=== PATIENT | female | born 1955 | race Caucasian/White ===

== ENCOUNTER 2017-03-19 11:52 | Emergency (ER) | payer OTHER ==
[~2017-03-19] VITALS: Ht 149.9 cm; Wt 68.0 kg
[~2017-03-19 11:52] MED LIST: CARV3.125 PO; DEXI30CA2 PO; ELDE1SYP PO; FIORIC PO; HAWT1CAP PO; LECIGRA PO; NITR.4 SL; PRIN5TAB PO; ST J81CH PO
[2017-03-19 11:59] VITALS: BP 152/72; PULSE 52; RESP 18; TEMP 99; O2SAT 97
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
[2017-03-19 12:09] VITALS: BP 187/88; PULSE 57; RESP 14; O2SAT 99
[2017-03-19] MEDS ORDERED: ASPI81CH CHEW (12:14)
[2017-03-19] MEDS ORDERED: DEXI30CA PO (12:14)
[2017-03-19] MEDS ORDERED: CARV3.12 PO (12:14)
[2017-03-19] MEDS ORDERED: LISI-519 PO (12:14)
[2017-03-19 12:28] VITALS: BP 158/74; PULSE 56
[2017-03-19] MEDS ORDERED: SODIUM CHLORIDE 0.9% FLUSH 10 ML FLUSH IVF PRN (12:30)
--- NOTE | 2017-03-19 12:35 | PD ---
HPI Chief Complaint: Pain: Acute or Chronic Time Seen by Provider: 12:03 Travel History International Travel<30 days: No Contact w/Intl Traveler<30days: No Traveled to known affect area: No History of Present Illness HPI This is a 61-year-old female with a history of coronary artery disease, hypertension, hyperlipidemia, who presents today with complaints of mid thoracic spine pain. The patient reports pain in her mid back is worse with movement. She denies any shortness of breath or pleuritic discomfort. She denies any chest pain, chest pressure. She states she's been taking over-the- counter pain medicines with no relief. The patient states she's had back pain in the past. She states that it's usually self resolved however today it has not. There is no tearing back pain. There is no pain between the shoulder blades. There is no nausea or diaphoresis. PFSH Past Medical History Arthritis: No Asthma: No Blood Disorders: No Anxiety: No Depression: No Heart Rhythm Problems: No Cancer: Yes (ENDOMETRIAL) Cardiac Catheterization: Yes (2001 AND 2009) Cardiovascular Problems: Yes (5 STENTS) High Cholesterol: Yes Chemotherapy: No Chest Pain: Yes Congestive Heart Failure: No COPD: No Cerebrovascular Accident: No Coronary Artery Disease: Yes Diminished Hearing: Yes (LEFT SIDE) Endocrine: No Gastrointestinal Disorders: Yes (GERD) GERD: No Genitourinary: No Headaches: No Hepatitis: No Hiatal Hernia: No Hypertension: Yes Immune Disorder: No Implanted Vascular Access Dvce: Yes Musculoskeletal: Yes (CERVICAL PAIN, DISCS SLIGHTLY HERNIATED) Neurologic: No Psychiatric: No Reproductive: Yes (VAGINAL SPOTTING) Respiratory: No Migraines: Yes Myocardial Infarction: No Radiation Therapy: No Seizures: No Sleep Apnea: No Thyroid Disease: No Ulcer: No Tetanus Vaccination: Unknown Menopausal: Yes : 3 Para: 3 Tubal Ligation: Yes (1974) Past Surgical History Abdominal Surgery: Yes (CHOLECYSTECTOMY, STONES REMOVED FROM DUCT) AICD: No Body Medical Devices: CARDIAC STENTS Cardiac Surgery: Yes (5 CARDIAC STENTS) Cholecystectomy: Yes Coronary Artery Bypass Graft: No Ear Surgery: No Endocrine Surgery: No Eye Surgery: No Genitourinary Surgery: Yes (ABSCESS REMOVED LEFT KIDNEY) Gynecologic Surgery: Yes (TUBAL LIGATION, D&C/hysterectomy) Hysterectomy: Yes Joint Replacement: No Pacemaker: No Thoracic Surgery: No Other Surgery: Yes (TUBAL) Social History Alcohol Use: No Tobacco Use: No Substance Use: No Allergies-Medications (Allergen,Severity, Reaction): Coded Allergies: Codeine (Verified Allergy, Severe, SWELLING, 03/19/17) Gemfibrozil (Verified Allergy, Severe, ELEVATED LIVER ENZYMES, 03/19/17) HMG-CoA Reductase Inhibitors (Verified Adverse Reaction, Severe, MUSCLE PAIN, 03/19/17) Ibuprofen (Verified Adverse Reaction, Unknown, R/T LIVER ENZYMES, 03/19/17) INSTRUCTED BY CARROTING MACHINE OFFBEARER NOT TO TAKE R/T LIVER ENZYMES Tylenol (Verified Adverse Reaction, Unknown, R/T LIVER ENZYMES, 03/19/17) INSTRUCTED BY CARDIOLOGY NOT TO TAKE R/T LIVER ENZYMES Reported Meds & Prescriptions Reported Meds & Active Scripts Active Lortab (Hydrocodone-Acetaminophen) 5-325 Mg Tab 1 Tab PO Q6H PRN Medrol Dosepak (Methylprednisolone) 4 Mg Dspk 4 Mg PO DIRECTED Per Pharmacist direction Reported Aspirin 81 Mg Chew 81 Mg CHEW DAILY Dexilant (Dexlansoprazole) 30 Mg Cap 30 Mg PO DAILY Lisinopril 5 Mg Tab 5 Mg PO DAILY Carvedilol 3.125 Mg Tab 3.125 Mg PO BID Review of Systems Except as stated in HPI: all other systems reviewed are Neg General / Constitutional: No: Fever, Chills HENT: No: Headaches, Vertigo, Lightheadedness Cardiovascular: No: Chest Pain or Discomfort, Palpitations Respiratory: No: Cough, Shortness of Breath Gastrointestinal: No: Nausea, Vomiting, Abdominal Pain Genitourinary: No: Dysuria, Flank Pain Musculoskeletal: Positive: Pain (mid thoracic pain at roughly the T5 level), No: Weakness Neurologic: No: Weakness, Dizziness, Headache Physical Exam Narrative GENERAL: Well-developed well-nourished female in no acute respiratory distress. SKIN: Focused skin assessment warm/dry. HEAD: Atraumatic. Normocephalic. EYES:No scleral icterus. No injection or drainage. ENT: Mucous membranes pink and moist. NECK: Trachea midline. No JVD. CARDIOVASCULAR: Sinus bradycardia. No murmur appreciated. RESPIRATORY: No accessory muscle use. Clear to auscultation. Breath sounds equal bilaterally. GASTROINTESTINAL: Abdomen soft, non-tender, nondistended. MUSCULOSKELETAL: No obvious deformities. No clubbing. No cyanosis. No edema. BACK: No CVA tenderness. No rash. Subjective tenderness at the T5 thoracic spine level mid line. There is no redness or swelling. There is no pain elicited on palpation. NEUROLOGICAL: Awake and alert. No obvious cranial nerve deficits. Motor grossly within normal limits. Normal speech. PSYCHIATRIC: Appropriate mood and affect; insight and judgment normal. Data Data Last Documented VS Vital Signs Date Time Temp Pulse Resp B/P Pulse Ox O2 Delivery O2 Flow Rate FiO2 03/19/17 12:28 56 158/74 03/19/17 12:09 14 03/19/17 12:09 99 Nasal Cannula 2 03/19/17 11:59 99.0 Orders Chest, Single Ap (03/19/17 12:29) Spine, Thoracic-Ap/Lat/Sw(3vw) (03/19/17 12:29) Basic Metabolic Panel (Bmp) (03/19/17 12:29) Ckmb (Isoenzyme) Profile (03/19/17 12:29) Complete Blood Count With Diff (03/19/17 12:29) Magnesium (Mg) (03/19/17 12:29) Troponin I (03/19/17 12:29) Ecg Monitoring (03/19/17 12:29) Bilateral Bp Monitoring (03/19/17 12:29) Iv Access Insert/Monitor (03/19/17 12:29) Oximetry (03/19/17 12:29) Oxygen Administration (03/19/17 12:29) Sodium Chloride 0.9% Flush (Ns Flush) (03/19/17 12:30) Labs Laboratory Tests Test 03/19/17 12:20 White Blood Count 8.2 TH/MM3 Red Blood Count 5.45 MIL/MM3 Hemoglobin 15.5 GM/DL Hematocrit 45.0 % Mean Corpuscular Volume 82.5 FL Mean Corpuscular Hemoglobin 28.4 PG Mean Corpuscular Hemoglobin 34.4 % Concent Red Cell Distribution Width 13.2 % Platelet Count 210 TH/MM3 Mean Platelet Volume 9.6 FL Neutrophils (%) (Auto) 61.3 % Lymphocytes (%) (Auto) 29.9 % Monocytes (%) (Auto) 6.4 % Eosinophils (%) (Auto) 1.4 % Basophils (%) (Auto) 1.0 % Neutrophils # (Auto) 5.0 TH/MM3 Lymphocytes # (Auto) 2.4 TH/MM3 Monocytes # (Auto) 0.5 TH/MM3 Eosinophils # (Auto) 0.1 TH/MM3 Basophils # (Auto) 0.1 TH/MM3 CBC Comment DIFF FINAL Differential Comment Sodium Level 139 MEQ/L Potassium Level 4.3 MEQ/L Chloride Level 107 MEQ/L Carbon Dioxide Level 26.1 MEQ/L Anion Gap 6 MEQ/L Blood Urea Nitrogen 12 MG/DL Creatinine 0.73 MG/DL Estimat Glomerular Filtration 81 ML/MIN Rate Random Glucose 84 MG/DL Calcium Level 9.1 MG/DL Magnesium Level 2.2 MG/DL Total Creatine Kinase 79 U/L Troponin I LESS THAN 0.02 NG/ML MDM Medical Decision Making Medical Screen Exam Complete: Yes Emergency Medical Condition: Yes Differential Diagnosis Thoracic spine pain versus thoracic aortic aneurysm/dissection versus atypical chest pain. Narrative Course 61-year-old female presents with mid thoracic spine pain. Patient states worse with movement from side to side. There is no chest pain, chest pressure. The patient's EKG and cardiac enzymes show no acute process. Chest x-ray shows a narrow mediastinum. The patient has equal pulses in her bilateral upper extremities as well as lower extremities. I doubt this is a aneurysm of the thoracic aorta. It is not constant tearing. It is worse with movement. The patient will be treated with a Medrol Dosepak. She is allergic to ibuprofen, Tylenol. She will be treated with Lortab 1 tab by mouth every 6 hours as needed. The Medrol Dosepak will be as per head and neck surgeon. She is instructed to use moist heat. She's also instructed to follow up with the orthopedic doctor if she has continued pain. Diagnosis Primary Impression: Thoracic back pain Additional Impression: Coronary artery disease Additional Instructions: Moist heat. If pain continues, follow up with orthopedic surgeon or primary care physician. Med/Other Pt SpecificInfo: Prescription(s) given Scripts Hydrocodone-Acetaminophen (Lortab)5-325 Mg Tab1 Tab PO Q6H PRN (PAIN) #20 TAB Ref 0 Prov:Richar Serna MD 03/19/17 Methylprednisolone Dosepak (Medrol Dosepak)4 Mg Dspk4 Mg PO DIRECTED #1 DSPK Ref 0 Per Pharmacist direction Prov:Richar Serna MD 03/19/17 Disposition: 01 DISCHARGE HOME Condition: Stable Richar Serna MD March 19, 2017 12:35
[2017-03-19 12:47] LABS: BASOPHIL # 0.1 TH/MM3 (0-0.2); EOSINOPHIL # 0.1 TH/MM3 (0-0.4); EOSINOPHIL % 1.4 % (0.0-4.0); HEMO FLAGS DIFF FINAL; LYMPH % 29.9 % (9.0-44.0); LYMPHOCYTE # 2.4 TH/MM3 (1.0-4.8); MEAN CELL VOLUME 82.5 FL (80.0-100.0); MEAN CORPUSCULAR HEMOGLOBIN 28.4 PG (27.0-34.0); MEAN CORPUSCULAR HGB CONC 34.4 % (32.0-36.0); MONO % 6.4 % (0.0-8.0); NEUT % 61.3 % (16.0-70.0); PLATELET COUNT 210 TH/MM3 (150-450); RED BLOOD COUNT 5.45 MIL/MM3 (4.00-5.30); RED CELL DISTRIBUTION WIDTH 13.2 % (11.6-17.2); WHITE BLOOD COUNT 8.2 TH/MM3 (4.0-11.0)
[2017-03-19 13:12] LABS: ANION GAP 6 MEQ/L (5-15); BICARBONATE 26.1 MEQ/L (21.0-32.0); BLOOD UREA NITROGEN 12 MG/DL (7-18); CHLORIDE 107 MEQ/L (98-107); GLOMERULAR FILTRATION RATE 81 ML/MIN (>89); MAGNESIUM 2.2 MG/DL (1.5-2.5); POTASSIUM 4.3 MEQ/L (3.5-5.1); SODIUM (NA) 139 MEQ/L (136-145)
[2017-03-19 13:16] LABS: CREATINE KINASE 79 U/L (26-192)
--- NOTE | 2017-03-19 13:16 | RADRPT ---
EXAM DATE/TIME: 03/19/2017 12:57 [facility] COMPARISON: CHEST SINGLE AP, June 23, 2016, 14:22. INDICATIONS : Middle back pain. MEDICAL HISTORY : Myocardial infarction. SURGICAL HISTORY : 5 stents ENCOUNTER: Initial ACUITY: 1 month PAIN SCORE: 0/10 LOCATION: Bilateral chest FINDINGS: A single view of the chest demonstrates the lungs to be symmetrically aerated with minimal atelectati c changes/scarring in the left lingula and right upper lobe. No confluent infiltrate or effusion. Hea rt size is normal. Minimal degenerative spurring of the dorsal spine. Osseous structures are otherwis e intact CONCLUSION: Minimal atelectatic changes/scarring in the left lingula and right upper lobe. No confluent infiltrat e.. Artem Lemon MD on March 19, 2017 at 13:13 Board Certified Radiologist. This report was verified electronically.
--- NOTE | 2017-03-19 13:28 | RADRPT ---
EXAM DATE/TIME: 03/19/2017 12:51 [facility] COMPARISON: No previous studies available for comparison. INDICATIONS : Middle back pain. MEDICAL HISTORY : Myocardial infarction. SURGICAL HISTORY : 5 stents ENCOUNTER: Initial ACUITY: 1 month PAIN SCORE: 6/10 LOCATION: Bilateral thoracic spine FINDINGS: The vertebral bodies are normal in alignment on the lateral view. There is no evidence of acute fract ure. Bony mineralization is normal. There is mild multilevel degenerative change throughout the spin e. CONCLUSION: 1. Mild degenerative changes as described above. There is no evidence of acute fracture. Ion Alejandra MD on March 19, 2017 at 13:26 Board Certified Radiologist. This report was verified electronically.
[2017-03-19] MEDS ORDERED: HYDR-3533 PO (13:53)
[2017-03-19] MEDS ORDERED: MEDR4PAK PO (13:53)
[2017-03-19 14:20] VITALS: BP_SYST 170; BP_SYST 187; BP_DIAS 78; BP_DIAS 88; PULSE 60; PULSE 62; RESP 15; O2SAT 92; O2SAT 98
[2017-03-19 14:58] VITALS: BP 143/83
--- NOTE | 2017-03-20 16:17 | EKG ---
Date Performed: 03/19/2017 Time Performed: 12:07:35 PTAGE: 61 years EKG: SINUS BRADYCARDIA BORDERLINE ECG PREVIOUS TRACING : 06/23/2016 @ 13.52.02 Compared to prior tracing no significant change DOCTOR: Nancy De Los Santos Interpretating Date/Time 03/20/2017 16:32:08
== END 2017-03-19 15:09 | disposition home or self-care (01) ==
LOC: NEPC 11:52
DX: M54.6 Pain in thoracic spine (principal); I25.10 Atherosclerotic heart disease of native coronary artery without angina pectoris; R94.31 Abnormal electrocardiogram [ECG] [EKG]; I10 Essential (primary) hypertension
CPT/HCPCS: 71010; 72072; 80048; 82550; 83735; 84484; 85025; 93005

== ENCOUNTER 2018-04-11 21:29 | Emergency (ER) | payer OTHER ==
[~2018-04-11] VITALS: Ht 149.9 cm; Wt 70.0 kg
[~2018-04-11 21:29] MED LIST changes: +ASPI-516 CHEW; +CARV3.12 PO; -CARV3.125 PO; +DEXI30CA PO; -DEXI30CA2 PO; -ELDE1SYP PO; -FIORIC PO; -HAWT1CAP PO; +HYDR-3533 PO; -LECIGRA PO; +LISI-519 PO; +MEDR4PAK PO; -NITR.4 SL; -PRIN5TAB PO; -ST J81CH PO
[2018-04-11 22:29] VITALS: BP 195/91; PULSE 65; RESP 18; TEMP 99.1; O2SAT 99
== END 2018-04-12 00:18 | disposition left against medical advice (07) ==
LOC: NED 21:29
DX: R09.89 Other specified symptoms and signs involving the circulatory and respiratory systems (principal)
CPT/HCPCS: 99281